=== PATIENT | male | born 1945 | race Two or more races ===

== ENCOUNTER 2022-08-02 08:41 | Emergency (ER) | payer OTHER ==
[~2022-08-02] VITALS: Ht 170.2 cm; Wt 93.0 kg
[2022-08-02] MEDS ORDERED: METFORMIN HCL500 M3 (08:58)
[2022-08-02] MEDS ORDERED: GLIMEPIRIDE4 MG (08:58)
[2022-08-02] MEDS ORDERED: ACTOS30 MG (08:58)
== END 2022-08-02 13:07 | disposition home or self-care (01) ==
LOC: ER 08:41
DX: S20.222A Contusion of left back wall of thorax, initial encounter (principal); W19.XXXA Unspecified fall, initial encounter; Y93.9 Activity, unspecified; Y92.89 Other specified places as the place of occurrence of the external cause; Y99.9 Unspecified external cause status; E11.9 Type 2 diabetes mellitus without complications; Z79.84 Long term (current) use of oral hypoglycemic drugs